=== PATIENT | female | born 1980 | race Caucasian/White ===

== ENCOUNTER 2016-11-20 14:44 | Emergency (ER) | payer OTHER ==
[~2016-11-20] VITALS: Ht 167.6 cm; Wt 86.5 kg
[~2016-11-20 14:44] MED LIST: OXYC1TAB3 PO; ZTHM250 PO
[2016-11-20 15:00] VITALS: TEMP 37.1; Ht 167.6 cm; Wt 86.5 kg
--- NOTE | 2016-11-20 15:38 | DIAGNOSTIC IMAGING REPORT ---
LEFT FINGER(S) MIN 2 VIEWS ROUTINE CLINICAL HISTORY: Left thumb pain status post trauma. Swelling. COMPARISON: None. DISCUSSION: No fractures or dislocations are visualized. IMPRESSION: No fractures or dislocations identified. Electronically signed by: Delmer Liu M.D. 11/20/2016 3:36 PM Dictated Date/Time: 11/20/2016 3:35 PM
--- NOTE | 2016-11-20 15:54 | EMERGENCY ROOM VISIT NOTE ---
History First contact with patient: 15:13 Chief Complaint: FINGER PAIN Stated Complaint: SWOLLEN THUMB, VERY TENDER History of Present Illness The patient is a 36 year old female who presents to the Emergency Room with complaints of persistent left thumb pain. The patient reports that she slipped while walking down steps on , and tried to catch herself with her left hand. She believes that the thumb was pulled backward. She reports swelling and bruising of the finger. She denies any pain extending into the wrist or forearm. Denies paresthesias or numbness of the left thumb, and rates her discomfort a 7 out of 10. The patient is [id number]. Review of Systems 10 system review was performed and was negative except for pertinent positives and negatives as indicated in history of present illness Past Medical/Surgical History Medical Problems: (1) Dislocation of coccyx (2) Pain, dental (3) Rash Family History Patient reports no known family medical history. Social History Smoking Status: Current Every Day Smoker Marital Status: single Housing Status: lives alone Occupation Status: employed Current/Historical Medications No Active Prescriptions or Reported Meds Allergies Coded Allergies: No Known Allergies (Unverified , 11/20/16) Physical Exam Vital Signs Date Time Temp Pulse Resp B/P Pulse Ox O2 Delivery O2 Flow Rate FiO2 11/20/16 15:00 37.1 88 17 144/87 97 Room Air Physical Exam CONSTITUTIONAL: Healthy and well nourished. Alert and oriented X 3 with positive affect. Patient appears in mild discomfort from pain. HEENT: Normocephalic, atraumatic. Pupils equal, round and reactive. NECK: Full active range of motion without discomfort. RESPIRATORY: Clear to auscultation bilaterally with no wheezing, crackles, rhonchi or stridor. CARDIOVASCULAR: Regular rate and rhythm with no murmurs, rubs or gallops. MUSCULOSKELETAL: Examination of the left hand shows edema and ecchymosis around the base of the thumb and first metacarpal region. She has no tenderness to palpation through the metacarpal. She has notable tenderness to palpation of the ulnar collateral ligament. No focal tenderness over the IP joint. Capillary refill is less than 2 seconds. Negative anatomic snuffbox tenderness. INTEGUMENTARY: No rash or other significant dermatologic conditions noted. NEUROLOGIC: Left thumb is sensory intact. Medical Decision & Procedures ER Provider Diagnostic Interpretation: My interpretation of left thumb x-rays does not show any acute fractures or dislocations. Radiologist report is as follows: LEFT FINGER(S) MIN 2 VIEWS ROUTINE CLINICAL HISTORY: Left thumb pain status post trauma. Swelling. COMPARISON: None. DISCUSSION: No fractures or dislocations are visualized. IMPRESSION: No fractures or dislocations identified. ED Course Patient history and physical exam were performed. Nurse's notes were reviewed. The patient refused any analgesics. X-rays of the left thumb were normal. A thumb spica Velcro splint was applied. The patient was encouraged to intermittently apply ice. Ibuprofen and Tylenol in alternating fashion as needed for pain. Follow-up with [facility] for further reevaluation and management. The patient was also advised that she would need a referral from her PCP as well. The patient was happy with plan of care, voiced understanding of all discharge instructions, and rated her pain a 5 out of 10 at the time of discharge. Medical Decision Impression Primary Impression: Left thumb sprain Departure Information Prescriptions No Active Prescriptions or Reported Meds Referrals No Doctor, Assigned (PCP) Patient Instructions A Signature Page, [facility]
[2016-11-20 15:55] VITALS: BP 146/79; PULSE 87; O2SAT 96
== END 2016-11-20 15:56 | disposition home or self-care (01) ==
LOC: C.EDB 14:45 → C.EDD 15:56
DX: S63.602A Unspecified sprain of left thumb, initial encounter (principal); W10.9XXA Fall (on) (from) unspecified stairs and steps, initial encounter; F17.200 Nicotine dependence, unspecified, uncomplicated

== ENCOUNTER 2018-04-01 16:50 | Emergency (ER) | payer SELFPAY ==
[~2018-04-01] VITALS: Ht 167.6 cm; Wt 93.5 kg
[2018-04-01 16:54] VITALS: BP 129/99; PULSE 79; TEMP 36.7; O2SAT 98; Ht 167.6 cm; Wt 93.5 kg
[2018-04-01] MEDS ORDERED: HYDR-5688 PO (17:08)
[2018-04-01] MEDS ORDERED: AMX500 PO (17:08)
--- NOTE | 2018-04-01 17:09 | EMERGENCY ROOM VISIT NOTE ---
ED Visit Note First contact with patient: 16:58 CHIEF COMPLAINT: "Tooth pain upper left back". HISTORY OF PRESENT ILLNESS: This 37-year-old female patient presented to the emergency department via private vehicle with a progressive toothache for past few days, predominantly since Sunday. The patient believes it is coming from superior posterior left molar. The pain is now steady and severe and radiates to the face. The patient does not a dentist appointment set up definitively, but notes that she starts a new job in the next few days and then will follow with [facility] shortly thereafter. They rate their pain a 8 /10 and the ibuprofen and Tylenol they have been taking has not relieved the pain. Denies facial swelling or fever. The patient denies any discharge from the mouth. She historically notes poor dentition, stating that she would likely have to have them removed. REVIEW OF SYSTEMS: A 6 system review of systems was completed with positives and pertinent negatives listed in the HPI. ALLERGIES: None MEDICATIONS: As noted below PMH: Noncontributory SOCIAL HISTORY: Patient lives locally and is starting a new job. PHYSICAL EXAM: Vitals are noted on the nurse's note and reviewed by myself. Vital signs stable. Temperature 36.7C orally. GENERAL: 37-year-old female, in no acute distress, nondiaphoretic, well-developed well-nourished. Mouth: The superior posterior left molar is very carious and the gum is not swollen but is tender around it, without any discharge or signs of an abscess. The remainder of the pharynx and tonsils are without erythema, edema, or exudate. The airway is patent. There is no facial swelling, cervical or submandibular lymphadenopathy. The patient appears uncomfortable and in pain. The patient has overall poor dental hygiene. EARS: External auditory canals clear, tympanic membranes pearly pacheco without erythema or effusion bilaterally. ED COURSE: Patient was seen and evaluated as above. She presents to us today with dental pain. She is nontoxic on exam. She is afebrile, no signs of Harry angina or swelling. I suspect she is likely experiencing nerve related pain in her superior posterior left molar. At this time no signs of an abscess or indication for inpatient management She will be given amoxicillin, and Troy for pain given that she has already tried [id number] medication without relief. She was thoroughly educated upon risks of this medication. No red flags in the pens of any drug monitoring system. She is to follow with dentistry for definitive management or return with worsening. She was educated upon management, educated upon worrisome symptoms in which to return, had questions in spite of discharge, and was discharged home in good condition. She denies chance of prior to prescribing the medications today. In the evaluation and treatment of this patient, the following differential diagnoses were considered: Periapical Abscess, Osteonecrosis of the Jaw, Dental Fracture, Dental Caries, Harry's Angina, Vincent's Angina, Facial Cellulitis. Problem List Medical Problems: (1) Dislocation of coccyx Status: Chronic (2) Pain, dental Status: Chronic (3) Rash Status: Resolved Current/Historical Medications Scheduled Amoxicillin (Amoxicillin), 500 MG PO TID Scheduled PRN Hydrocodone/Acetaminophen 5MG/325MG (Troy 5MG/325MG), 1-2 TABLET PO Q6 PRN for Pain Allergies Coded Allergies: No Known Allergies (Unverified , 11/20/16) Vital Signs Date Time Temp Pulse Resp B/P (MAP) Pulse Ox O2 Delivery O2 Flow Rate FiO2 04/01/18 16:54 36.7 79 20 129/99 98 Room Air Departure Information Impression Primary Impression: Odontalgia Dispostion Home / Self-Care Condition GOOD Prescriptions Hydrocodone/Acetaminophen 5MG/325MG (Troy 5MG/325MG) Tab 1-2 TABLET PO Q6 Y for Pain, #12 TAB For Initial Treatment Prov: Justino Mcallister PA-C 04/01/18 Amoxicillin (Amoxicillin) 500 Mg Cap 500 MG PO TID for 10 Days, #30 TABS Prov: Justino Mcallister PA-C 04/01/18 Referrals No Doctor, Assigned (PCP) [facility] Patient Instructions [facility] Additional Instructions You have been treated in the Emergency Department for Dental Pain. You have been prescribed NORCO to be used for pain control. This is a narcotic medication. You cannot drive or consume alcohol while on this medicine. This medicine should only be used for pain that cannot be controlled with over-the- counter pain medicines. Please do not take this with Tylenol. You were prescribed Amoxicillin to be taken every 8 hours. This is an antibiotic. All antibiotics have the potential to cause diarrhea. Stop this medication and contact a medical provider if you were to develop any significant adverse side effects including: wheezing, shortness of breath, passing out, vomiting, or a diffuse rash. Always take antibiotics as directed and COMPLETE the ENTIRE course regardless of the improvement of your symptoms. For pain control, you can use the following [id number] medicines (if >12 yo): - Regular strength (325mg/tab) Tylenol (acetaminophen) 2 tabs every 4-6 hours as needed. Do not exceed 12 tablets in a 24 hour period. Avoid taking more than 3 grams (3000 mg) of Tylenol per day. This includes any other sources of acetaminophen you may take on a regular basis. Please do not take this with the AlignMed as it already contains it. - Regular strength (200 mg/tab) Advil (ibuprofen) 1-2 tabs every 4-6 hours as needed. Do not exceed a dose of 3200 mg per day. Refrain from smoking cigarettes or using chewing tobacco until you have been evaluated by your dentist. Keeping beverages lukewarm and consuming soft foods can decrease your pain. Warm compresses over the affected area may offer some relief. You MUST seek evaluation of your dental pain by a dentist following your visit to the Emergency Department. Return to the emergency department if you develop the following symptoms despite treatment course outlined above: fever, intractable pain, increased redness, swelling, or purulent discharge.
== END 2018-04-01 17:17 | disposition home or self-care (01) ==
LOC: C.EDB 16:52 → C.EDD 17:17
DX: K08.89 Other specified disorders of teeth and supporting structures (principal)